=== PATIENT | female | born 1985 | race Caucasian/White ===

== ENCOUNTER 2017-12-25 08:30 | Emergency (ER) | payer BC ==
[2017-12-25 09:02] VITALS: BP 105/59
--- NOTE | 2017-12-25 09:06 | EDM.PDOC ---
ED HPI GENERAL MEDICAL PROBLEM - General Chief Complaint: Gastrointestinal Problem Stated Complaint: , CONSTIPATION Time Seen by Provider: 12/25/17 08:50 Source of Information: Reports: Patient History Limitations: Reports: No Limitations - History of Present Illness INITIAL COMMENTS - FREE TEXT/NARRATIVE: This 31 yo female patient reports to the ED by [facility] due to lower abdominal pain and cramping. The patient reports that she has not had a bowel movement in the past 4 days. The patient reports that she was attempting to digitally remove stool, but has not been able to relieve her symptoms. The patient reports that she has been attempting to push, but just can not get any stool to pass. The patient was seen on Thursday by Dr. Steven for vaginal bleeding and cramping. During that visit, the patient had an ultrasound (normal with a heartbeat) and was told that her cervix was closed. The patient reports that she has not had any additional bleeding or similar cramping. The patient reports she has been taking her vitamins and has attempted to use MiraLax. The patient reports, when she called the ambulance, she was on the bathroom floor having lower abdominal cramping, not able to control her urine and not able to have a bowel movement. 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: Other Medication(s) (MiraLax) - Related Data Allergies Allergy/AdvReac Type Severity Reaction Status Date / Time erythromycin base Allergy Nausea and Verified 04/27/15 09:57 Vomiting Penicillins Allergy Cannot Verified 04/27/15 09:57 Remember Home Meds: Home Meds ALPRAZolam [Alprazolam] 1 tab PO TID PRN 03/09/15 [History] Ergocalciferol (Vitamin D2) [Vitamin D2] 1 cap PO ASDIRECTED 03/09/15 [History] Vit37/Iron/Folic Acid [Prenata] 2 tab PO DAILY 12/25/17 [History] Past Medical History Other HEENT History: WEARS CONTACTS Other Cardiovascular History: HYPOTENSION Other Gastrointestinal History: INTERMITTENT RECTAL BLEEDING; MUCOUS WITH BM'S Other OB/BYN History: ABNORMAL PAP SMEAR - Past Surgical History Other HEENT Surgeries/Procedures: WISDOM TEETH REMOVED Social & Family History - Tobacco Use Smoking Status *Q: Never Smoker - Recreational Drug Use Recreational Drug Use: No ED ROS GENERAL - Review of Systems Review Of Systems: ROS reveals no pertinent complaints other than HPI. ED EXAM, GI/ABD - Physical Exam Exam: See Below Exam Limited By: No Limitations General Appearance: Alert, WD/WN, Moderate Distress Eyes: Bilateral: Normal Appearance, EOMI Ears: Normal External Exam, Normal Canal, Hearing Grossly Normal, Normal TMs Nose: Normal Inspection, Normal Mucosa, No Blood Throat/Mouth: Normal Inspection, Normal Lips, Normal Teeth, Normal Gums, Normal Oropharynx, Normal Voice, No Airway Compromise Head: Atraumatic, Normocephalic Neck: Normal Inspection, Supple, Non-Tender, Full Range of Motion Respiratory/Chest: No Respiratory Distress, Lungs Clear, Normal Breath Sounds, No Accessory Muscle Use, Chest Non-Tender Cardiovascular: Normal Peripheral Pulses, Regular Rate, Rhythm, No Edema, No Gallop, No JVD, No Murmur, No Rub GI/Abdominal Exam: Normal Bowel Sounds, Soft, No Organomegaly, No Distention, No Abnormal Bruit, No Mass, Pelvis Stable, Tender (lower abdomen) (Female) Exam: Deferred Rectal (Female) Exam: Deferred Back Exam: Normal Inspection, Full Range of Motion, NT Extremities: Normal Inspection, Normal Range of Motion, Non-Tender, Normal Capillary Refill, No Pedal Edema Neurological: Alert, Oriented, CN II-XII Intact, Normal Cognition, Normal Gait, Normal Reflexes, No Motor/Sensory Deficits Psychiatric: Normal Affect, Normal Mood Skin Exam: Warm, Dry, Intact, Normal Color, No Rash Lymphatic: No Adenopathy Course - Vital Signs Last Recorded V/S: Last Vital Signs Temp 37.3 C 12/25/17 08:33 Pulse 80 12/25/17 08:33 Resp 18 12/25/17 08:33 BP 105/59 L 12/25/17 08:33 Pulse Ox 100 12/25/17 08:33 - Orders/Labs/Meds Orders: Active Orders 24 hr Category Date Time Status Enema [RC] ASDIRECTED Care 12/25/17 09:34 Active Labs: Laboratory Tests 12/25/17 12/25/17 12/25/17 Range/Units 08:43 08:43 08:50 WBC (5.0-10.0) 10^3/uL RBC (4.2-5.4) 10^6/uL Hgb (12.0-16.0) g/dL Hct (37.0-47.0) % MCV (80-100) fL MCH (27.0-34.0) pg MCHC (33.0-35.0) g/dL Plt Count (150-450) 10^3/uL Neut % (Auto) (42.2-75.2) % Lymph % (Auto) (20.5-50.1) % [place] % (Auto) (2-8) % Eos % (Auto) (1.0-3.0) % Baso % (Auto) (0.0-1.0) % Sodium (135-145) mmol/L Potassium (3.6-5.0) mmol/L Chloride (101-111) mmol/L Carbon Dioxide (21.0-31.0) mmol/L Anion Gap BUN (7-18) mg/dL Creatinine (0.6-1.3) mg/dL Est Cr Clr Drug Dosing mL/min Estimated GFR (MDRD) BUN/Creatinine Ratio Glucose (74-105) mg/dL Calcium (8.4-10.2) mg/dl Total Bilirubin (0.2-1.0) mg/dL AST (10-42) IU/L ALT (10-60) IU/L Alkaline Phosphatase (42-121) IU/L Total Protein (6.7-8.2) g/dl Albumin (3.2-5.5) g/dl Globulin Albumin/Globulin Ratio HCG, Quant > 1324 H (0-25) mIU/ml Beta HCG, Quant [id number] mIU/ml Urine Color Yellow (YELLOW) Urine Appearance Clear (CLEAR) Urine pH 7.0 (5.0-9.0) Ur Specific [place] 1.010 (1.005-1.030) Urine Protein Negative (NEGATIVE) Urine Glucose (UA) Negative (NEGATIVE) Urine Ketones Negative (NEGATIVE) Urine Occult Blood Negative (NEGATIVE) Urine Nitrite Negative (NEGATIVE) Urine Bilirubin Negative (NEGATIVE) Urine Urobilinogen 0.2 (0.2-1.0) mg/dL Ur Leukocyte Esterase Negative (NEGATIVE) Urine RBC 0-5 /HPF Urine WBC 0-5 (0-5/HPF) /HPF Ur Epithelial Cells Few /HPF Urine Bacteria Few (0-FEW/HPF) /HPF Urine Opiates Screen Negative (NEGATIVE) Ur Oxycodone Screen Negative (NEGATIVE) Urine Methadone Screen Negative (NEGATIVE) Ur Barbiturates Screen Negative (NEGATIVE) U Tricyclic Antidepress Negative (NEGATIVE) Ur Phencyclidine Scrn Negative (NEGATIVE) Ur Amphetamine Screen Negative (NEGATIVE) U Methamphetamines Scrn Negative (NEGATIVE) Urine MDMA Screen Negative (NEGATIVE) U Benzodiazepines Scrn Negative (NEGATIVE) Urine Cocaine Screen Negative (NEGATIVE) U Marijuana (THC) Screen Negative (NEGATIVE) 12/25/17 12/25/17 Range/Units 08:50 08:50 WBC 11.9 H (5.0-10.0) 10^3/uL RBC 3.90 L (4.2-5.4) 10^6/uL Hgb 11.6 L (12.0-16.0) g/dL Hct 34.7 L (37.0-47.0) % MCV 89.0 (80-100) fL MCH 29.7 (27.0-34.0) pg MCHC 33.4 (33.0-35.0) g/dL Plt Count 275 (150-450) 10^3/uL Neut % (Auto) 80.7 H (42.2-75.2) % Lymph % (Auto) 11.8 L (20.5-50.1) % [place] % (Auto) 7.0 (2-8) % Eos % (Auto) 0.3 L (1.0-3.0) % Baso % (Auto) 0.2 (0.0-1.0) % Sodium 130 L (135-145) mmol/L Potassium 3.4 L (3.6-5.0) mmol/L Chloride 97 L (101-111) mmol/L Carbon Dioxide 23.0 (21.0-31.0) mmol/L Anion Gap 13.4 BUN < 5 L (7-18) mg/dL Creatinine 0.5 L (0.6-1.3) mg/dL Est Cr Clr Drug Dosing 121.45 mL/min Estimated GFR (MDRD) > 60 BUN/Creatinine Ratio 10.00 Glucose 93 (74-105) mg/dL Calcium 9.3 (8.4-10.2) mg/dl Total Bilirubin 0.6 (0.2-1.0) mg/dL AST 20 (10-42) IU/L ALT 9 L (10-60) IU/L Alkaline Phosphatase 64 (42-121) IU/L Total Protein 7.3 (6.7-8.2) g/dl Albumin 3.8 (3.2-5.5) g/dl Globulin 3.5 Albumin/Globulin Ratio 1.09 HCG, Quant (0-25) mIU/ml Beta HCG, Quant mIU/ml Urine Color (YELLOW) Urine Appearance (CLEAR) Urine pH (5.0-9.0) Ur Specific [place] (1.005-1.030) Urine Protein (NEGATIVE) Urine Glucose (UA) (NEGATIVE) Urine Ketones (NEGATIVE) Urine Occult Blood (NEGATIVE) Urine Nitrite (NEGATIVE) Urine Bilirubin (NEGATIVE) Urine Urobilinogen (0.2-1.0) mg/dL Ur Leukocyte Esterase (NEGATIVE) Urine RBC /HPF Urine WBC (0-5/HPF) /HPF Ur Epithelial Cells /HPF Urine Bacteria (0-FEW/HPF) /HPF Urine Opiates Screen (NEGATIVE) Ur Oxycodone Screen (NEGATIVE) Urine Methadone Screen (NEGATIVE) Ur Barbiturates Screen (NEGATIVE) U Tricyclic Antidepress (NEGATIVE) Ur Phencyclidine Scrn (NEGATIVE) Ur Amphetamine Screen (NEGATIVE) U Methamphetamines Scrn (NEGATIVE) Urine MDMA Screen (NEGATIVE) U Benzodiazepines Scrn (NEGATIVE) Urine Cocaine Screen (NEGATIVE) U Marijuana (THC) Screen (NEGATIVE) Meds: Medications Discontinued Medications Generic Name Dose Route Start Last Admin Trade Name Freq PRN Reason Stop Dose Admin Senna/Docusate Sodium 2 tab 12/25/17 11:47 12/25/17 12:08 Senna Plus PO 12/25/17 11:48 2 tab ONETIME ONE Administration Departure - Departure Time of Disposition: 12:46 Disposition: Home, Self-Care 01 Condition: Fair Clinical Impression: Constipation during in first trimester - Discharge Information Instructions: Constipation, Adult, [id number] Forms: ED Department Discharge Care Plan Goals: The patient was advised of the examination and lab results during the visit. The patient was given an enema to relieve her constipation. The patient was encouraged to take [id number] Docusate sodium/sennosides (50/8.6) to take 1 by mouth 2 times per day for 1 week. The patient should also increase her dietary fiber and drink plenty of fluids. If the patient has any additional symptoms or concerns, the patient should follow-up with her primary care facility or return to the emergency department. - My Orders Last 24 Hours: My Active Orders 12/25/17 09:34 Enema [RC] ASDIRECTED - Assessment/Plan Last 24 Hours: My Active Orders 12/25/17 09:34 Enema [RC] ASDIRECTED
[2017-12-25 09:17] LABS: CHLORIDE,CL 97 mmol/L (101-111); SODIUM,NA 130 mmol/L (135-145)
== END 2017-12-25 13:55 | disposition home or self-care (01) ==
LOC: DL.ED 08:30 → DL.MS 08:45 → DL.ED 13:55
DX: O99.611 Diseases of the digestive system complicating pregnancy, first trimester (principal); K59.00 Constipation, unspecified; Z88.1 Allergy status to other antibiotic agents; Z88.0 Allergy status to penicillin; Z79.899 Other long term (current) drug therapy
CPT/HCPCS: 36415; 80053; 80305; 81001; 84702; 85025; 99284; A9270

== ENCOUNTER 2020-02-15 10:45 | Inpatient (IN) | payer BC ==
[2020-02-15] MEDS ORDERED: Sodium Chloride 0.9% 10 ML Syringe FLUSH PRN (12:39)
[2020-02-15] MEDS ORDERED: Acetaminophen 325 MG Tab PO PRN (12:39)
[2020-02-15] MEDS ORDERED: Oxytocin/Normal Saline 30 UNIT/500 ML BAG ONE (12:45)
[2020-02-15] MEDS ORDERED: Oxytocin/Normal Saline 30 UNIT/500 ML BAG IV SCH ×2 (12:45→13:00)
[2020-02-15] MEDS ORDERED: Lactated Ringers 1,000 ML IV SCH (12:45)
[2020-02-15] MEDS: Lactated Ringers 1,000 ML IV SCH ×3 (12:59→19:10)
--- NOTE | 2020-02-15 14:22 | PCM.LDHP ---
L&D History of Present Illness - General Date of Service: 02/15/20 (Admit H&P) Admit Problem/Dx: Patient Status Order with Admit Dx/Problem 02/15/20 12:39 Patient Status [ADT] Routine Admission Diagnosis/Problem Admission Diagnosis/Problem Term 02/15/20 14:13 34yo WF @ 40w1d, AMA, Hx VAVD, Anxiety with depression, Hx hyperemesis, vegetarian, anemia, B+ blood type, RNI. NST today reactive, cervix ripe, admitted for induction. CODIV rapid test negative and no known r]exposure risk Source of Information: Patient, Family, Old Records, Provider, RN, Significant Other, Other ([facility] notes and episode) History Limitations: Reports: No Limitations - History of Present Illness Introduction:: 34yo WF @ 40w1d, AMA, Hx VAVD, Anxiety with depression, Hx hyperemesis, vegetarian, anemia, B+ blood type, RNI. NST today reactive, cervix ripe, admitted for induction. CODIV rapid test negative and no known exposure risk Baby active. cxns every 10-15 minutes on NST this morning. cervix 4cm at clinic, 75% effaced, BOWI =vertex well applied Timing/Duration: Reports: minutes: (10-15) Location, : Reports: Uterus Quality: Reports: Ache, Dull Severity: Mild Associated Symptoms: Reports: vaginal discharge (mucus plug passed) - Related Data Allergies/Adverse Reactions: Allergies Allergy/AdvReac Type Severity Reaction Status Date / Time erythromycin base Allergy Nausea and Verified 02/15/20 11:22 Vomiting Penicillins Allergy Cannot Verified 02/15/20 11:22 Remember Home Medications: Home Meds Vit37/Iron/Folic Acid [Prenata] 2 tab PO DAILY 12/25/17 [History] FLUoxetine [PROzac] 20 mg pe PO DAILY 08/17/18 [History] Ferrous Sulfate 325 mg PO DAILY 08/17/18 [History] Past Medical History HEENT History: Reports: Impaired Vision, Other (See Below) Other HEENT History: WEARS CONTACTS Cardiovascular History: Reports: Other (See Below) Other Cardiovascular History: HYPOTENSION Respiratory History: Reports: None Gastrointestinal History: Reports: Hemorrhoids, Other (See Below) Other Gastrointestinal History: INTERMITTENT RECTAL BLEEDING; MUCOUS WITH BM'S Genitourinary History: Reports: None [employer] History: Reports: , Spontaneous : 3 Para: 1 LMP (Approximate): Other OB/BYN History: ABNORMAL PAP SMEAR Musculoskeletal History: Reports: None Neurological History: Reports: None Psychiatric History: Reports: Anxiety, Depression Endocrine/Metabolic History: Reports: None Hematologic History: Reports: Anemia Immunologic History: Reports: None Oncologic (Cancer) History: Reports: None Dermatologic History: Reports: None - Infectious Disease History Infectious Disease History: Reports: None - Past Surgical History Head Surgeries/Procedures: Reports: None Other HEENT Surgeries/Procedures: WISDOM TEETH REMOVED - History Comment History Comment: vegetarian Social & Family History - Family History Family Medical History: Noncontributory Psychiatric: Reports: Emotional Problems Other Psychiatric Family History: depression and anxiety issues Endocrine/Metabolic: Reports: Hypothyroidism Other Family History: see EPIC notes for details of her family history. - Tobacco Use Smoking Status *Q: Never Smoker Tobacco Use Within Last Twelve Months: No Second Hand Smoke Exposure: No - Caffeine Use Caffeine Use: Reports: Soda - Alcohol Use Alcohol Use History: No Alcohol Use in Last Twelve Months: No - Recreational Drug Use Recreational Drug Use: No Drug Use in Last 12 Months: No - Sexual History Sexual History: Reports: Sexually Active, Single Partner - Living Situation & Occupation Living situation: Reports: Occupation: Employed (works for [employer] in [employer] [employer] Social History Comment: Lives with and their son, . H&P Review of Systems - Review of Systems: Review Of Systems: Comprehensive ROS is negative, except as noted in HPI. L&D Exam - Exam Exam: See Below - Vital Signs Vital Signs: as noted graphic. BP not elevated, low in clinic today 84/46m temp was 97.3 Weight: 138 lb 9.6 oz - OB Specific Contraction Intensity: Mild Movement: Active Heart Tones: Present Heart Tones per Min: 135 (reactive NST) Heart Rate (FHR) Variability: Moderate (6-25 bmp) Presentation: Vertex Estimated Weight: 7lb =/- 1/2# - Falcon Score Falcon Score Cervix Position: Midposition Falcon Score Consistency: Soft Falcon Score Effacement: 51-70% Falcon Score Dilation: 3-4 cm Falcon Score Infant's Station: -2 Falcon Score Total: 8 - Exam General: Alert, Oriented, Cooperative, Mild Distress HEENT: Conjunctiva Clear, EOMI, Hearing Intact, Mucosa Moist & [place], Pupils Equal, Pupils Reactive Neck: Supple Lungs: Clear to Auscultation, Normal Respiratory Effort Cardiovascular: Regular Rate, Regular Rhythm GI/Abdominal Exam: Normal Bowel Sounds, Non-Tender Rectal Exam: Normal Exam Genitourinary: Normal external exam, Cervical dilitation, Enlarged uterus, Vaginal discharge Back Exam: Normal Inspection Extremities: Normal Inspection, Normal Range of Motion, No Pedal Edema, Normal Capillary Refill Skin: Warm, Dry, Intact Neurological: Normal Speech, Normal Tone Psychiatric: Alert, Normal Affect, Normal Mood, Anxious - Patient Data Lab Results Last 24 hrs: Laboratory Results - last 24 hr 02/15/20 02/15/20 Range/Units 10:45 12:30 WBC 11.9 H (5.0-10.0) 10^3/uL RBC 3.53 L (4.2-5.4) 10^6/uL Hgb 11.4 L (12.0-16.0) g/dL Hct 34.2 L (37.0-47.0) % MCV 96.9 (80-100) fL MCH 32.3 (27.0-34.0) pg MCHC 33.3 (33.0-35.0) g/dL Plt Count 202 (150-450) 10^3/uL SARS-CoV-2 RNA (RT-PCR) Negative (NEGATIVE) Result Diagrams: 02/15/20 12:30 - Problem List (1) Post term SNOMED Code(s): 97540928 ICD Code: O48.0 - POST-TERM Status: Acute Current Visit: Yes (2) AMA (advanced maternal age) multigravida 35+ SNOMED Code(s): 454546150 ICD Code: O09.529 - SUPERVISION OF ELDERLY MULTIGRAVIDA, UNSPECIFIED TRIMESTER Status: Acute Current Visit: Yes (3) Vegetarian SNOMED Code(s): 759551016 ICD Code: Z78.9 - OTHER SPECIFIED HEALTH STATUS Status: Acute Current Visit: Yes (4) Maternal iron deficiency anemia affecting in third trimester, antepartum SNOMED Code(s): 20639767, 00783973, 328045588 ICD Code: O99.013 - ANEMIA COMPLICATING , THIRD TRIMESTER; D50.9 - IRON DEFICIENCY ANEMIA, UNSPECIFIED Status: Acute Current Visit: Yes (5) History of delivery by vacuum extraction, currently in third trimester SNOMED Code(s): 342646314, 722250703 ICD Code: O09.293 - SUPRVSN OF PREG W POOR REPRODCTV OR OBSTET HX, THIRD TRI Status: Acute Current Visit: Yes (6) Blood type B+ SNOMED Code(s): 056351234 ICD Code: Z67.20 - TYPE B BLOOD, RH POSITIVE Status: Acute Current Visit : No (7) Group B Streptococcus not isolated SNOMED Code(s): 448982919 ICD Code: QFD2327 - Status: Acute Current Visit: No (8) Rubella non-immune status, antepartum SNOMED Code(s): 138563778 ICD Code: O99.89 - OTH DISEASES AND CONDITIONS COMPL PREG/CHLDBRTH; Z28.3 - UNDERIMMUNIZATION STATUS Status: Acute Current Visit: No (9) Rupture of membranes with clear amniotic fluid SNOMED Code(s): 735477822, 278864239 ICD Code: [id number] - Status: Acute Current Visit: No Problem List Initiated/Reviewed/Updated: Yes Orders Last 24hrs: Active Orders 24 hr Category Date Time Status Patient Status [ADT] Routine ADT 02/15/20 12:39 Active Communication Order [RC] ASDIRECTED Care 02/15/20 12:39 Active Communication Order [RC] ASDIRECTED Care 02/15/20 12:39 Active Communication Order [RC] ASDIRECTED Care 02/15/20 12:39 Active Communication Order [RC] ASDIRECTED Care 02/15/20 12:39 Active Communication Order [RC] ASDIRECTED Care 02/15/20 12:39 Active Monitoring [RC] PER UNIT ROUTINE Care 02/15/20 12:39 Active Notify Provider Vital Signs OB [RC] ASDIRECTED Care 02/15/20 12:39 Active Notify Provider [RC] PRN Care 02/15/20 12:39 Active Notify Provider [RC] PRN Care 02/15/20 12:39 Active Notify Provider [RC] STAT Care 02/15/20 12:39 Active Peripheral IV Care [RC] . DIRECTED Care 02/15/20 12:40 Active Up ad Denise [RC] PER UNIT ROUTINE Care 02/15/20 12:39 Active Vaginal Exam [RC] PRN Care 02/15/20 12:39 Active Vital Signs [RC] PER UNIT ROUTINE Care 02/15/20 12:39 Active Acetaminophen [Tylenol] Med 02/15/20 12:39 Active 650 mg PO Q4H PRN Lactated Ringers [Ringers, Lactated] 1,000 ml Med 02/15/20 12:45 Active IV ASDIRECTED Lactated Ringers [Ringers, Lactated] 1,000 ml Med 02/15/20 13:00 Active IV ASDIRECTED Oxytocin/Normal Saline [Pitocin in NS 30 UNIT/500 ML] Med 02/15/20 13:00 Active 30 unit in 500 ml IV TITRATE Sodium Chloride 0.9% [Saline Flush] Med 02/15/20 12:39 Active 10 ml FLUSH ASDIRECTED PRN Peripheral IV Insertion Adult [OM.PC] Urgent Oth 02/15/20 12:39 Ordered Medication Orders Acetaminophen (Tylenol) 650 mg PO Q4H PRN PRN Reason: Pain/Fever Lactated Ringer's (Ringers, Lactated) 1,000 mls @ 500 mls/hr IV ASDIRECTED LEYDA Oxytocin/Sodium Chloride (Pitocin In Ns 30 Unit/500 Ml) 30 unit in 500 mls @ 2 mls/hr IV TITRATE LEYDA; Protocol Last Admin: 02/15/20 12:59 Dose: 2 munits/min, 2 mls/hr Lactated Ringer's (Ringers, Lactated) 1,000 mls @ 125 mls/hr IV ASDIRECTED LEYDA Last Admin: 02/15/20 12:59 Dose: 125 mls/hr Sodium Chloride (Saline Flush) 10 ml FLUSH ASDIRECTED PRN PRN Reason: Keep Vein Open Assessment/Plan Comment:: Assessment: 34yo WF @ 40w1d high risk in for induction AMA multigravida Blood type B+ Rubella non-immune GBS negative Maternal Anemia--hgb 11.4 on admit Vegetarian diet Hx of vacuum assisted vaginal delivery Anxiety and depression--on fluoxetine Hx hyperemesis=--resolved NST reactive/reassuring Plan: discussed options with her. as her cervix is ripe, and she is past her due date, they would like to proceed with induction has been passing mucous plug and having mild cxns today. cervix is 3+cm, 70% effaced, -2/-3 station, soft, vertex, BOWI COVID testing was completed on arrival and is NEGATIVE. AROM carried out with return of clear/non-meconium fluid. Pitocin infusion started as discussed. will continue to monitor closely. she is planning intrathecal for analgesia. further management pending her clinical course in labor. should have MMR after delivery. continue fluoxetine. PNV, iron, routine orders. hmb
[2020-02-15] MEDS ORDERED: fentaNYL 100 MCG/2 ML SDV IVPUSH PRN ×2 (15:25→16:30)
--- NOTE | 2020-02-15 17:12 | PCM.SN.2 ---
- Free Text/Narrative Note: 02-15-2020 1700 doing well pitocin @ 6 cxns every 2 minutes tracing reassuring fentanyl for comfort fluid remains clear cervix 6cm, 90%, -1st vertex well applied with cxn will continue to monitor and anticipate intrathecal when able. b
[2020-02-15] MEDS ORDERED: Ondansetron 4 MG/2 ML SDV ONE (17:38)
[2020-02-15] MEDS ORDERED: EPINEPHrine 1 MG/1 ML Amp ONE (17:44)
--- NOTE | 2020-02-15 18:00 | PCM.PREANE ---
Preanesthetic Assessment - Procedure Proposed Procedure: intrathecal analgesia - Anesthesia/Transfusion/Family Hx Anesthesia History: Prior Anesthesia Without Reaction Family History of Anesthesia Reaction: No Transfusion History: No Prior Transfusion(s) - Review of Systems General: No Symptoms Pulmonary: No Symptoms Cardiovascular: No Symptoms Gastrointestinal: No Symptoms Neurological: No Symptoms Other: Reports: None - Physical Assessment NPO Status Date: 02/15/20 NPO Status Time: 12:00 Vital Signs: Last Vital Signs Temp 98.1 F 02/15/20 14:41 Pulse 84 02/15/20 12:34 Resp 16 02/15/20 12:34 BP 99/54 L 02/15/20 12:34 Pulse Ox Height: 5 ft 4 in Weight: 138 lb 9.6 oz ASA Class: 2E Mental Status: Alert & Oriented x3 Airway Class: Mallampati = 2 Dentition: Reports: Normal Dentition Thyro-Mental Finger Breadths: 4 Mouth Opening Finger Breadths: 4 ROM/Head Extension: Full Lungs: Clear to Auscultation Cardiovascular: Regular Rate, Regular Rhythm - Lab Values: Laboratory Last Values WBC 11.9 10^3/uL (5.0-10.0) H 02/15/20 12:30 RBC 3.53 10^6/uL (4.2-5.4) L 02/15/20 12:30 Hgb 11.4 g/dL (12.0-16.0) L 02/15/20 12:30 Hct 34.2 % (37.0-47.0) L 02/15/20 12:30 MCV 96.9 fL (80-100) 02/15/20 12:30 MCH 32.3 pg (27.0-34.0) 02/15/20 12:30 MCHC 33.3 g/dL (33.0-35.0) 02/15/20 12:30 Plt Count 202 10^3/uL (150-450) 02/15/20 12:30 SARS-CoV-2 RNA (RT-PCR) Negative (NEGATIVE) 02/15/20 10:45 - Allergies Allergies/Adverse Reactions: Allergies Allergy/AdvReac Type Severity Reaction Status Date / Time erythromycin base Allergy Nausea and Verified 02/15/20 11:22 Vomiting Penicillins Allergy Cannot Verified 02/15/20 11:22 Remember - Acknowledgements Anesthesia Type Planned: Spinal Pt an Appropriate Candidate for the Planned Anesthesia: Yes Alternatives and Risks of Anesthesia Discussed w Pt/Guardian: Yes Pt/Guardian Understands and Agrees with Anesthesia Plan: Yes PreAnesthesia Questionnaire HEENT History: Reports: Impaired Vision, Other (See Below) Other HEENT History: WEARS CONTACTS Cardiovascular History: Reports: Other (See Below) Other Cardiovascular History: HYPOTENSION Respiratory History: Reports: None Gastrointestinal History: Reports: Hemorrhoids, Other (See Below) Other Gastrointestinal History: INTERMITTENT RECTAL BLEEDING; MUCOUS WITH BM'S Genitourinary History: Reports: None 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: , Spontaneous Other OB/BYN History: ABNORMAL PAP SMEAR Musculoskeletal History: Reports: None Neurological History: Reports: None Psychiatric History: Reports: Anxiety, Depression Endocrine/Metabolic History: Reports: None Hematologic History: Reports: Anemia Immunologic History: Reports: None Oncologic (Cancer) History: Reports: None Dermatologic History: Reports: None - Infectious Disease History Infectious Disease History: Reports: None - Past Surgical History Head Surgeries/Procedures: Reports: None Other HEENT Surgeries/Procedures: WISDOM TEETH REMOVED - History Comment History Comment: vegetarian - SUBSTANCE USE Smoking Status *Q: Never Smoker Tobacco Use Within Last Twelve Months: No Second Hand Smoke Exposure: No Recreational Drug Use History: No - HOME MEDS Home Medications: Home Meds Vit37/Iron/Folic Acid [Prenata] 2 tab PO DAILY 12/25/17 [History] FLUoxetine [PROzac] 20 mg pe PO DAILY 08/17/18 [History] Ferrous Sulfate 325 mg PO DAILY 08/17/18 [History] - CURRENT (IN HOUSE) MEDS Current Meds: Current Medications Acetaminophen (Tylenol) 650 mg PO Q4H PRN PRN Reason: Pain/Fever Fentanyl (Sublimaze) 50 mcg IVPUSH Q1H PRN PRN Reason: Pain (moderate 4-6) Last Admin: 02/15/20 15:35 Dose: 50 mcg Fentanyl (Sublimaze) 100 mcg IVPUSH Q1H PRN PRN Reason: Pain (severe 7-10) Last Admin: 02/15/20 16:44 Dose: 100 mcg Lactated Ringer's (Ringers, Lactated) 1,000 mls @ 500 mls/hr IV ASDIRECTED LEYDA Oxytocin/Sodium Chloride (Pitocin In Ns 30 Unit/500 Ml) 30 unit in 500 mls @ 2 mls/hr IV TITRATE LEYDA; Protocol Last Titration: 02/15/20 14:51 Dose: 6 munits/min, 6 mls/hr Lactated Ringer's (Ringers, Lactated) 1,000 mls @ 125 mls/hr IV ASDIRECTED LEYDA Last Admin: 02/15/20 17:49 Dose: 125 mls/hr Sodium Chloride (Saline Flush) 10 ml FLUSH ASDIRECTED PRN PRN Reason: Keep Vein Open Discontinued Medications Epinephrine HCl (Adrenalin) Confirm Administered Dose 1 mg .ROUTE .STK-MED ONE Stop: 02/15/20 17:45 Oxytocin/Sodium Chloride (Pitocin In Ns 30 Unit/500 Ml) Confirm Administered Dose 30 unit in 500 mls @ as directed .ROUTE .STK-MED ONE Stop: 02/15/20 12:46 Last Admin: 02/15/20 15:09 Dose: Not Given Ondansetron HCl (Zofran) Confirm Administered Dose 4 mg .ROUTE .STK-MED ONE Stop: 02/15/20 17:39 Last Admin: 02/15/20 17:48 Dose: 4 mg Sufentanil Citrate (Sufenta) Confirm Administered Dose 50 mcg .ROUTE .STK-MED ONE Stop: 02/15/20 17:44
--- NOTE | 2020-02-15 18:04 | PCM.PRNOTE ---
- Free Text/Narrative Note: Intrathecal Room 1747 Time out 1748 Sitting position. Sterile prep and drape NSF with betadine Local skin wheal 1%lidocaine L 3/4 IT. +CSF -Heme -Parasthesia 0.9mL 0.75% marcaine 20 mcg sufenta 0.1mL epi Intrathecal complete 1752 all needles accounted for. pt. tolerated procedure well. Pre VS: 107/55 hr 87 FHR 121 Post VS: 121/65 hr 80 FHR 110
[2020-02-15] MEDS ORDERED: Lidocaine 1% 30 ML SDV ONE (18:05)
[2020-02-15] MEDS ORDERED: Tranexamic Acid 1,000 MG in Sodium Chloride 0.9% 100 ML IV PRN (18:36)
[2020-02-15] MEDS ORDERED: Misoprostol 400 MCG (4 X 100 MCG TAB) RECTAL PRN (18:36)
[2020-02-15] MEDS ORDERED: Measles, Mumps & Rubella Vaccine 0.5 ML SDV SUBCUT ONE (18:36)
[2020-02-15] MEDS ORDERED: Carboprost Tromethamine 250 MCG/1 ML Amp IM PRN (18:36)
[2020-02-15] MEDS ORDERED: Benzocaine/Menthol 20%-0.5% Spray 56 GM Canister TOP PRN (18:36)
[2020-02-15] MEDS ORDERED: Ibuprofen 800 MG Tab PO PRN (18:36)
[2020-02-15] MEDS ORDERED: Simethicone 80 MG Tab.Chew PO PRN (18:36)
[2020-02-15] MEDS ORDERED: Zolpidem 5 MG Tab PO PRN (18:36)
[2020-02-15] MEDS ORDERED: Docusate Sodium 100 MG Cap PO PRN (18:36)
--- NOTE | 2020-02-15 18:45 | PCM.DEL ---
L & D Note - General Info Date of Service: 02/15/20 (time of delivery 71676) Mother's Due Date: 02/14/20 (40w1d) - Delivery Note Labor: Augmented by ARM, Induced by Oxytocin Delivery Outcome: Livebirth Delivery Method: Spontaneous Vaginal Delivery-Single Delivery Mode: Vacuum Extraction Presentation: Right Occiput Anterior (SAMI) Nuchal Cord: None (wrapped around left ankle) Prep: Povidone-Iodine (Betadine Anesthesia Type: Intrathecal (excellent results) Amniotic Fluid Description: Clear Laceration: 2nd Degree Suture size: 2-0 Placenta: Intact, Expressed Cord: 3 Vessels Estimated Blood Loss: 157 Resuscitation Needed: No : Suctioned, Bulb Syringe, Stimulated, Warmed, [place] Used, Warmer Used Provider: Mackenzie Steven Score 1 min: 7 Score 5 min: 9 Second Stage Interventions: Reports: Encouragement Given, Laboring Down, Pushing Effectively Delivery Comments (Free Text/Narrative):: Milka is a delightful 34yo who came in for induction, had pitocin started , AROM with clear fluid, underwent intrathecal with excellent results, and then rapidly went to complete dilation. Pushed well, with bradycardia noted. not feeling any urge to push, therefore I did put a vacuum on with one cxn and delivered a viable female over 2degree midline laceration without complications. cord was tightly wrapped around the right ankle at delivery and unwound easily. APGARs 7 & 9, weight pending. void and stool at . stimulated and dried after delivery. Now skin to skin with mom. planning breast feeding. hmb Vacuum Extractor Progress Note - Alternative Labor Strategies Considered Alternative Labor Strategies Considered:: Reports: Yes Strategies Considered:: Reports: Contraction Intensity Adequate, Position Changes Used to Facilitate Rotation & Descent, Empty Bladder, Rest Indications Considered:: Reports: Yes Indications:: Reports: Suspicion of Immediate or Potential Compromise Time Out:: Reports: Yes - Patient Prepared Patient Prepared:: Reports: Yes Informed Consent:: Reports: Verbal Risks: Reports: Yes Anesthesia/Analgesia Adequate:: Reports: Yes - Probability of Success High Probability of Success:: Reports: Yes Weight Estimated:: Reports: AGA Patient Diabetic:: Reports: No Pelvis Adequate:: Reports: Yes Position:: SAMI Asynclitic:: Reports: No Station:: Comments:: vacuum on with part of one contraction only and baby delivered. hmb - Application Time Maximum Application Time & Number of Pop-Offs Predetermined:: Reports: Yes Total Application Time (min): *max=20min: 1 Number of Times Cup Disengaged:: 0 Type of Vacuum Used:: Reports: Cup: Ryan type Vacuum Extraction: Successful - Exit Strategy Exit strategy available:: Reports: Yes and resuscitation teams readily available:: Reports: Yes Consult as indicated:: not needed Comments:: uncomplicated delivery. - General Info Date of Service: 02/15/20 (time of delivery: 1819) - Patient Data Vitals - Most Recent: Last Vital Signs Temp 98.1 F 02/15/20 14:41 Pulse 84 02/15/20 12:34 Resp 16 02/15/20 12:34 BP 99/54 L 02/15/20 12:34 Pulse Ox Weight - Most Recent: 138 lb 9.6 oz I&O - Last 24 Hours: Intake & Output 02/15/20 02/15/20 02/15/20 06:59 14:59 22:59 Intake Total 500 Balance 500 Lab Results Last 24 Hours: Laboratory Results - last 24 hr 02/15/20 02/15/20 Range/Units 10:45 12:30 WBC 11.9 H (5.0-10.0) 10^3/uL RBC 3.53 L (4.2-5.4) 10^6/uL Hgb 11.4 L (12.0-16.0) g/dL Hct 34.2 L (37.0-47.0) % MCV 96.9 (80-100) fL MCH 32.3 (27.0-34.0) pg MCHC 33.3 (33.0-35.0) g/dL Plt Count 202 (150-450) 10^3/uL SARS-CoV-2 RNA (RT-PCR) Negative (NEGATIVE) Med Orders - Current: Current Medications Acetaminophen (Tylenol) 650 mg PO Q4H PRN PRN Reason: Pain/Fever Fentanyl (Sublimaze) 50 mcg IVPUSH Q1H PRN PRN Reason: Pain (moderate 4-6) Last Admin: 02/15/20 15:35 Dose: 50 mcg Fentanyl (Sublimaze) 100 mcg IVPUSH Q1H PRN PRN Reason: Pain (severe 7-10) Last Admin: 02/15/20 16:44 Dose: 100 mcg Lactated Ringer's (Ringers, Lactated) 1,000 mls @ 500 mls/hr IV ASDIRECTED LEYDA Oxytocin/Sodium Chloride (Pitocin In Ns 30 Unit/500 Ml) 30 unit in 500 mls @ 2 mls/hr IV TITRATE LEYDA; Protocol Last Titration: 02/15/20 14:51 Dose: 6 munits/min, 6 mls/hr Lactated Ringer's (Ringers, Lactated) 1,000 mls @ 125 mls/hr IV ASDIRECTED LEYDA Last Admin: 02/15/20 17:49 Dose: 125 mls/hr Sodium Chloride (Saline Flush) 10 ml FLUSH ASDIRECTED PRN PRN Reason: Keep Vein Open Discontinued Medications Epinephrine HCl (Adrenalin) Confirm Administered Dose 1 mg .ROUTE .STK-MED ONE Stop: 02/15/20 17:45 Oxytocin/Sodium Chloride (Pitocin In Ns 30 Unit/500 Ml) Confirm Administered Dose 30 unit in 500 mls @ as directed .ROUTE .STK-MED ONE Stop: 02/15/20 12:46 Last Admin: 02/15/20 15:09 Dose: Not Given Lidocaine HCl (Xylocaine-Mpf 1%) Confirm Administered Dose 30 ml .ROUTE .STK- MED ONE Stop: 02/15/20 18:06 Ondansetron HCl (Zofran) Confirm Administered Dose 4 mg .ROUTE .STK-MED ONE Stop: 02/15/20 17:39 Last Admin: 02/15/20 17:48 Dose: 4 mg Sufentanil Citrate (Sufenta) Confirm Administered Dose 50 mcg .ROUTE .STK-MED ONE Stop: 02/15/20 17:44 - Problem List & Annotations (1) Post term SNOMED Code(s): 68553896 Code(s): O48.0 - POST-TERM Status: Acute Current Visit: Yes Qualifiers: Post-term type: 40-42 weeks gestation Qualified Code(s): O48.0 - Post-term (2) AMA (advanced maternal age) multigravida 35+ SNOMED Code(s): 238705069 Code(s): O09.529 - SUPERVISION OF ELDERLY MULTIGRAVIDA, UNSPECIFIED TRIMESTER Status: Acute Current Visit: Yes (3) Vegetarian SNOMED Code(s): 132437102 Code(s): Z78.9 - OTHER SPECIFIED HEALTH STATUS Status: Acute Current Visit: Yes (4) Maternal iron deficiency anemia affecting in third trimester, antepartum SNOMED Code(s): 45388616, 31867944, 351403750 Code(s): O99.013 - ANEMIA COMPLICATING , THIRD TRIMESTER; D50.9 - IRON DEFICIENCY ANEMIA, UNSPECIFIED Status: Acute Current Visit: Yes (5) History of delivery by vacuum extraction, currently in third trimester SNOMED Code(s): 753790461, 742155353 Code(s): O09.293 - SUPRVSN OF PREG W POOR REPRODCTV OR OBSTET HX, THIRD TRI Status: Acute Current Visit: Yes (6) Blood type B+ SNOMED Code(s): 984678422 Code(s): Z67.20 - TYPE B BLOOD, RH POSITIVE Status: Acute Current Visit: No (7) Group B Streptococcus not isolated SNOMED Code(s): 978505522 Code(s): DIJ7853 - Status: Acute Current Visit: No (8) Rubella non-immune status, antepartum SNOMED Code(s): 719647574 Code(s): O99.89 - OTH DISEASES AND CONDITIONS COMPL PREG/CHLDBRTH; Z28.3 - UNDERIMMUNIZATION STATUS Status: Acute Current Visit: No (9) Rupture of membranes with clear amniotic fluid SNOMED Code(s): 367152509, 406021441 Code(s): CQE3520 - Status: Acute Current Visit: No (10) Vacuum extraction, delivered, current hospitalization SNOMED Code(s): 015873133 Code(s): O66.5 - ATTEMPTED APPLICATION OF VACUUM EXTRACTOR AND FORCEPS Status: Acute Current Visit: Yes (11) Mother currently breast-feeding SNOMED Code(s): 445528506 Code(s): VKL7849 - Status: Acute Current Visit: No (12) Obstetric vaginal laceration, delivered, current hospitalization SNOMED Code(s): 510224038, 488905730 Code(s): O71.4 - OBSTETRIC HIGH VAGINAL LACERATION ALONE Status: Acute Current Visit: No - Problem List Review Problem List Initiated/Reviewed/Updated: Yes - My Orders Last 24 Hours: My Active Orders 02/15/20 12:39 Patient Status [ADT] Routine Communication Order [RC] ASDIRECTED Communication Order [RC] ASDIRECTED Communication Order [RC] ASDIRECTED Communication Order [RC] ASDIRECTED Communication Order [RC] ASDIRECTED Notify Provider Vital Signs OB [RC] ASDIRECTED Notify Provider [RC] PRN Notify Provider [RC] PRN Notify Provider [RC] STAT Up ad Denise [RC] PER UNIT ROUTINE Vaginal Exam [RC] PRN Vital Signs [RC] PER UNIT ROUTINE Acetaminophen [Tylenol] 650 mg PO Q4H PRN Sodium Chloride 0.9% [Saline Flush] 10 ml FLUSH ASDIRECTED PRN Peripheral IV Insertion Adult [OM.PC] Urgent 02/15/20 12:40 Peripheral IV Care [RC] . DIRECTED 02/15/20 12:45 Lactated Ringers [Ringers, Lactated] 1,000 ml IV ASDIRECTED 02/15/20 13:00 Lactated Ringers [Ringers, Lactated] 1,000 ml IV ASDIRECTED Oxytocin/Normal Saline [Pitocin in NS 30 UNIT/500 ML] 30 unit in 500 ml IV TITRATE 02/15/20 15:20 Communication Order [RC] DAILY 02/15/20 15:25 fentaNYL [Sublimaze] 50 mcg IVPUSH Q1H PRN 02/15/20 16:30 fentaNYL [Sublimaze] 100 mcg IVPUSH Q1H PRN 02/15/20 18:36 May Shower [RC] ASDIRECTED Benzocaine/Menthol [Dermoplast Pain Relief [place]] See Dose Instructions TOP Q4H PRN Carboprost Tromethamine [Hemabate DS] 250 mcg IM ASDIRECTED PRN Docusate Sodium [Colace] 100 mg PO BID PRN Ibuprofen [Motrin] 800 mg PO Q8H PRN Measles, Mumps & Rubella [M-M-R II Vaccine] 0.5 ml SUBCUT .ONCE ONE Simethicone 80 mg PO Q4H PRN Tranexamic Acid [Cyklokapron] 1,000 mg Sodium Chloride 0.9% [Normal Saline] 100 ml IV ONETIME Zolpidem [Ambien] 5 mg PO BEDTIME PRN miSOPROStoL [Cytotec] 800 mcg RECTAL ONETIME PRN jun [place] [Medi-Pads] 1 each TOP Q4HR PRN Assess Lochia [WOMSER] Per Unit Routine Assess Uterine Involution [WOMSER] Per Unit Routine Breast Pump [WOMSER] Per Unit Routine Ice Therapy [OM.PC] Per Unit Routine Perineal Care [OM.PC] Per Unit Routine Saline Lock Insert [OM.PC] Urgent Sitz Bath [OM.PC] Per Unit Routine Resuscitation Status Routine 02/15/20 18:38 Vaccines to be Administered [RC] PER UNIT ROUTINE 02/15/20 Dinner Regular Diet [DIET] 02/16/20 09:00 Vit with Ca/FA/Iron [ Plus Iron] 1 each PO DAILY - Plan Plan:: Assessment: 34yo WF @ 40w1d high risk in for induction AMA multigravida Blood type B+ Rubella non-immune GBS negative Maternal Anemia--hgb 11.4 on admit Vegetarian diet Hx of vacuum assisted vaginal delivery Anxiety and depression--on fluoxetine Hx hyperemesis=--resolved NST reactive/reassuring Plan: discussed options with her. as her cervix is ripe, and she is past her due date, they would like to proceed with induction has been passing mucous plug and having mild cxns today. cervix is 3+cm, 70% effaced, -2/-3 station, soft, vertex, BOWI COVID testing was completed on arrival and is NEGATIVE. AROM carried out with return of clear/non-meconium fluid. Pitocin infusion started as discussed. will continue to monitor closely. she is planning intrathecal for analgesia. further management pending her clinical course in labor. should have MMR after delivery. continue fluoxetine. PNV, iron, routine orders. hmb Delivery: 1820 viable female APGARs 7 & 9 weight pending VAVD with 2nd degree see notes. hmb
--- NOTE | 2020-02-16 08:51 | PCM48HPAN ---
Post Anesthesia Note - EVALUATION WITHIN 48HRS OF ANESTHETIC Vital Signs in Normal Range: Yes Patient Participated in Evaluation: Yes Respiratory Function Stable: Yes Airway Patent: Yes Cardiovascular Function Stable: Yes Hydration Status Stable: Yes Pain Control Satisfactory: Yes Nausea and Vomiting Control Satisfactory: Yes Mental Status Recovered: Yes Vital Signs: Last Vital Signs Temp 98.5 F 02/15/20 21:00 Pulse 82 02/15/20 21:00 Resp 16 02/15/20 21:00 BP 108/50 L 02/15/20 21:00 Pulse Ox 100 02/15/20 18:00 - COMMENTS/OBSERVATIONS Free Text/Narrative:: Post intrathecal for labor analgesia. Pt. sitting up in bed. Nursing . Stated she was very comfortable during delivery. No ARCs.
[2020-02-16] MEDS ORDERED: Prenatal Multivitamin with Calcium/Folic Acid/Iron Tab PO SCH (09:00)
[2020-02-16] MEDS ORDERED: EPINEPHrine 1 MG/1 ML Amp ONE (10:26)
[2020-02-16 16:38] VITALS: BP 106/59; PULSE 64
--- NOTE | 2020-02-16 16:45 | PCM.DCSUM1 ---
Discharge Summary - Hospital Course Diagnosis: Stroke: No - Discharge Data Discharge Date: 02/16/20 (DISCHARGE SUMMARY/DATE) Discharge Disposition: Home, Self-Care 01 Condition: Good - Referral to Home Health Primary Care Physician: Mackenzie Steven MD - Discharge Diagnosis/Problem(s) (1) Post term SNOMED Code(s): 69351852 ICD Code: O48.0 - POST-TERM Status: Acute Current Visit: Yes Qualifiers: Post-term type: 40-42 weeks gestation Qualified Code(s): O48.0 - Post-term (2) AMA (advanced maternal age) multigravida 35+ SNOMED Code(s): 318234940 ICD Code: O09.529 - SUPERVISION OF ELDERLY MULTIGRAVIDA, UNSPECIFIED TRIMESTER Status: Acute Current Visit: Yes (3) Vegetarian SNOMED Code(s): 514876119 ICD Code: Z78.9 - OTHER SPECIFIED HEALTH STATUS Status: Acute Current Visit: Yes (4) Maternal iron deficiency anemia affecting in third trimester, antepartum SNOMED Code(s): 37723800, 63774819, 220109888 ICD Code: O99.013 - ANEMIA COMPLICATING , THIRD TRIMESTER; D50.9 - IRON DEFICIENCY ANEMIA, UNSPECIFIED Status: Acute Current Visit: Yes (5) History of delivery by vacuum extraction, currently in third trimester SNOMED Code(s): 641417409, 437136579 ICD Code: O09.293 - SUPRVSN OF PREG W POOR REPRODCTV OR OBSTET HX, THIRD TRI Status: Acute Current Visit: Yes (6) Blood type B+ SNOMED Code(s): 991130081 ICD Code: Z67.20 - TYPE B BLOOD, RH POSITIVE Status: Acute Current Visit : No (7) Group B Streptococcus not isolated SNOMED Code(s): 239576811 ICD Code: EWV9669 - Status: Acute Current Visit: No (8) Rubella non-immune status, antepartum SNOMED Code(s): 618125004 ICD Code: O99.89 - OTH DISEASES AND CONDITIONS COMPL PREG/CHLDBRTH; Z28.3 - UNDERIMMUNIZATION STATUS Status: Acute Current Visit: No (9) Rupture of membranes with clear amniotic fluid SNOMED Code(s): 783556933, 938968881 ICD Code: KPW0836 - Status: Acute Current Visit: No (10) Vacuum extraction, delivered, current hospitalization SNOMED Code(s): 438368793 ICD Code: O66.5 - ATTEMPTED APPLICATION OF VACUUM EXTRACTOR AND FORCEPS Status: Acute Current Visit: Yes (11) Mother currently breast-feeding SNOMED Code(s): 563218226 ICD Code: AMD9744 - Status: Acute Current Visit: No (12) Obstetric vaginal laceration, delivered, current hospitalization SNOMED Code(s): 301965833, 623179589 ICD Code: O71.4 - OBSTETRIC HIGH VAGINAL LACERATION ALONE Status: Acute Current Visit: No - Discharge Plan Home Medications: Home Meds Vit37/Iron/Folic Acid [Prenata] 1 tab PO DAILY 12/25/17 [History] FLUoxetine [PROzac] 20 mg pe PO DAILY 08/17/18 [History] Ferrous Sulfate 325 mg PO DAILY 08/17/18 [History] - Discharge Summary/Plan Comment DC Time >30 min.: No Discharge Summary/Plan Comment: ROUTINE DISCHARGE ORDERS - Patient Data Vitals - Most Recent: Last Vital Signs Temp 98.1 F 02/16/20 08:00 Pulse 64 02/16/20 08:00 Resp 16 02/16/20 08:00 BP 106/59 L 02/16/20 08:00 Pulse Ox 99 02/16/20 08:00 Weight - Most Recent: 138 lb 9.6 oz Med Orders - Current: Current Medications Acetaminophen (Tylenol) 650 mg PO Q4H PRN PRN Reason: Pain/Fever Benzocaine/Menthol (Dermoplast Pain Relief [place]) 0 gm TOP Q4H PRN PRN Reason: Perineal comfort measures Carboprost Tromethamine (Hemabate Ds) 250 mcg IM ASDIRECTED PRN PRN Reason: Excessive vaginal bleeding Docusate Sodium (Colace) 100 mg PO BID PRN PRN Reason: Constipation Last Admin: 02/16/20 09:06 Dose: 100 mg Fentanyl (Sublimaze) 50 mcg IVPUSH Q1H PRN PRN Reason: Pain (moderate 4-6) Last Admin: 02/15/20 15:35 Dose: 50 mcg Fentanyl (Sublimaze) 100 mcg IVPUSH Q1H PRN PRN Reason: Pain (severe 7-10) Last Admin: 02/15/20 16:44 Dose: 100 mcg Lactated Ringer's (Ringers, Lactated) 1,000 mls @ 500 mls/hr IV ASDIRECTED LEYDA Oxytocin/Sodium Chloride (Pitocin In Ns 30 Unit/500 Ml) 30 unit in 500 mls @ 2 mls/hr IV TITRATE LEYDA; Protocol Last Titration: 02/15/20 21:13 Dose: 0 munits/min, 0 mls/hr Lactated Ringer's (Ringers, Lactated) 1,000 mls @ 125 mls/hr IV ASDIRECTED LEYDA Last Admin: 02/15/20 19:10 Dose: 125 mls/hr Tranexamic Acid 1,000 mg/ (Sodium Chloride) 110 mls @ 660 mls/hr IV ONETIME PRN PRN Reason: Bleeding Ibuprofen (Motrin) 800 mg PO Q8H PRN PRN Reason: Mild Pain or Fever Last Admin: 02/16/20 06:39 Dose: 800 mg Misoprostol (Cytotec) 800 mcg RECTAL ONETIME PRN PRN Reason: Hemorrhage Prenat Multivit/[place]/Iron/Folic Ac ( Plus Iron) 1 each PO DAILY [facility] Last Admin: 02/16/20 09:06 Dose: Not Given Simethicone (Simethicone) 80 mg PO Q4H PRN PRN Reason: Gas Sodium Chloride (Saline Flush) 10 ml FLUSH ASDIRECTED PRN PRN Reason: Keep Vein Open [place] (Medi-Pads) 1 each TOP Q4HR PRN PRN Reason: Perineal Comfort Measure Zolpidem Tartrate (Ambien) 5 mg PO BEDTIME PRN PRN Reason: Insomnia Discontinued Medications Epinephrine HCl (Adrenalin) Confirm Administered Dose 1 mg .ROUTE .STK-MED ONE Stop: 02/15/20 17:45 Last Admin: 02/15/20 20:28 Dose: Not Given Epinephrine HCl (Adrenalin) 0.1 mg .XX .STK-MED ONE Stop: 02/16/20 10:27 Oxytocin/Sodium Chloride (Pitocin In Ns 30 Unit/500 Ml) Confirm Administered Dose 30 unit in 500 mls @ as directed .ROUTE .STK-MED ONE Stop: 02/15/20 12:46 Last Admin: 02/15/20 15:09 Dose: Not Given Lidocaine HCl (Xylocaine-Mpf 1%) Confirm Administered Dose 30 ml .ROUTE .STK- MED ONE Stop: 02/15/20 18:06 Last Admin: 02/15/20 20:28 Dose: Not Given Measles/Mumps/Rubella Vaccine Live (M-M-R Ii Vaccine) 0.5 ml SUBCUT .ONCE ONE Stop: 02/15/20 18:37 Last Admin: 02/15/20 20:59 Dose: 0.5 ml Ondansetron HCl (Zofran) Confirm Administered Dose 4 mg .ROUTE .STK-MED ONE Stop: 02/15/20 17:39 Last Admin: 02/15/20 17:48 Dose: 4 mg Sufentanil Citrate (Sufenta) Confirm Administered Dose 50 mcg .ROUTE .STK-MED ONE Stop: 02/15/20 17:44 Last Admin: 02/15/20 20:27 Dose: Not Given Sufentanil Citrate (Sufenta) 20 mcg ITHECAL .STK-MED ONE Stop: 02/16/20 10:27
== END 2020-02-16 19:30 | disposition home or self-care (01) | DRG 560 ==
LOC: DL.OB 10:45 → UNDOADMOB 10:46 → DL.OB 10:46 → UNDOADMOB 10:53 → DL.OB 12:39 → OBSVTOIN 18:20 → DL.OB 18:20
PROVIDERS: ADMIT Family Medicine; ATTEND Family Medicine
PROC: 10D07Z6 Extraction of Products of Conception, Vacuum, Via Natural or Artificial Opening (ICD-10-PCS; principal; 2020-02-15)
PROC: 10907ZC Drainage of Amniotic Fluid, Therapeutic from Products of Conception, Via Natural or Artificial Opening (ICD-10-PCS; 2020-02-15)
PROC: 3E033VJ Introduction of Other Hormone into Peripheral Vein, Percutaneous Approach (ICD-10-PCS; 2020-02-15)
PROC: 0KQM0ZZ Repair Perineum Muscle, Open Approach (ICD-10-PCS; 2020-02-15)
PROC: 3E0R3BZ Introduction of Anesthetic Agent into Spinal Canal, Percutaneous Approach (ICD-10-PCS; 2020-02-15)
PROC: 00HU33Z Insertion of Infusion Device into Spinal Canal, Percutaneous Approach (ICD-10-PCS; 2020-02-15)
PROC: 3E0234Z Introduction of Serum, Toxoid and Vaccine into Muscle, Percutaneous Approach (ICD-10-PCS; 2020-02-15)
DX: O48.0 Post-term pregnancy (principal); O99.02 Anemia complicating childbirth; D50.9 Iron deficiency anemia, unspecified; O99.344 Other mental disorders complicating childbirth; F32.9 Major depressive disorder, single episode, unspecified; Z11.59 Encounter for screening for other viral diseases; F41.9 Anxiety disorder, unspecified; O70.1 Second degree perineal laceration during delivery; Z23 Encounter for immunization; Z3A.40 40 weeks gestation of pregnancy; Z37.0 Single live birth; Z88.0 Allergy status to penicillin; Z78.9 Other specified health status; Z67.20 Type B blood, Rh positive
CPT/HCPCS: 36415; 59409; 85027; 90471; 90707; A9270-GY; J0171; J2405; J2590; J3010; J7120; U0002

== ENCOUNTER 2020-05-29 16:06 | Emergency (ER) | payer BC ==
[2020-05-29 16:20] VITALS: BP 106/76; PULSE 99
[2020-05-29] MEDS ORDERED: Ondansetron 4 MG/2 ML SDV IVPUSH ONE (16:38)
[2020-05-29] MEDS ORDERED: Sodium Chloride 0.9% 1,000 ML IV ONE (16:38)
--- NOTE | 2020-05-29 16:47 | EDM.PDOC ---
ED HPI GENERAL MEDICAL PROBLEM - General Chief Complaint: General Stated Complaint: DIZZY NAUSEA SWEATS Time Seen by Provider: 05/29/20 16:35 Source of Information: Reports: Patient History Limitations: Reports: No Limitations - History of Present Illness INITIAL COMMENTS - FREE TEXT/NARRATIVE: This 34 yo female patient reports to the ED due to an abrupt onset of hot flashes, nausea, vomiting and diffuse abdominal cramping. The patient reports she was vomiting on the ride to the ED. 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 Onset: Today Duration: Minutes:, Constant Location: Reports: Abdomen, Generalized Quality: Reports: Other Severity: Moderate Improves with: Reports: None Worsens with: Reports: None Context: Reports: Other Associated Symptoms: Reports: Nausea/Vomiting - Related Data Allergies Allergy/AdvReac Type Severity Reaction Status Date / Time erythromycin base Allergy Nausea and Verified 02/15/20 11:22 Vomiting Penicillins Allergy Cannot Verified 02/15/20 11:22 Remember Home Meds: Home Meds Vit37/Iron/Folic Acid [Prenata] 1 tab PO DAILY 12/25/17 [History] FLUoxetine [PROzac] 20 mg pe PO DAILY 08/17/18 [History] Ferrous Sulfate 325 mg PO DAILY 08/17/18 [History] Past Medical History HEENT History: Reports: Impaired Vision, Other (See Below) Other HEENT History: WEARS CONTACTS Cardiovascular History: Reports: Other (See Below) Other Cardiovascular History: HYPOTENSION Respiratory History: Reports: None Gastrointestinal History: Reports: Hemorrhoids, Other (See Below) Other Gastrointestinal History: INTERMITTENT RECTAL BLEEDING; MUCOUS WITH BM'S Genitourinary History: Reports: None [employer] History: Reports: , Spontaneous Other [employer] History: ABNORMAL PAP SMEAR Musculoskeletal History: Reports: None Neurological History: Reports: None Psychiatric History: Reports: Anxiety, Depression Endocrine/Metabolic History: Reports: None Hematologic History: Reports: Anemia Immunologic History: Reports: None Oncologic (Cancer) History: Reports: None Dermatologic History: Reports: None - Infectious Disease History Infectious Disease History: Reports: None - Past Surgical History Head Surgeries/Procedures: Reports: None Other HEENT Surgeries/Procedures: WISDOM TEETH REMOVED - History Comment History Comment: vegetarian Social & Family History - Family History Family Medical History: Noncontributory Psychiatric: Reports: Emotional Problems Other Psychiatric Family History: depression and anxiety issues Endocrine/Metabolic: Reports: Hypothyroidism - Tobacco Use Smoking Status *Q: Never Smoker - Caffeine Use Caffeine Use: Reports: None - Recreational Drug Use Recreational Drug Use: No - Sexual History Sexual History: Reports: Sexually Active, Single Partner - Living Situation & Occupation Living situation: Reports: Occupation: Employed (works for [employer] in [employer] ED ROS GENERAL - Review of Systems Review Of Systems: Comprehensive ROS is negative, except as noted in HPI. ED EXAM, GENERAL - Physical Exam Exam: See Below Exam Limited By: No Limitations General Appearance: Alert, WD/WN, No Apparent Distress Eye Exam: Bilateral Eye: EOMI, Normal Inspection, PERRL Ears: Normal External Exam, Normal Canal, Hearing Grossly Normal, Normal TMs Nose: Normal Inspection, Normal Mucosa, No Blood Throat/Mouth: Normal Inspection, Normal Lips, Normal Teeth, Normal Gums, Normal Oropharynx, Normal Voice, No Airway Compromise Head: Atraumatic, Normocephalic Neck: Normal Inspection, Supple, Non-Tender, Full Range of Motion Respiratory/Chest: No Respiratory Distress, Lungs Clear, Normal Breath Sounds, No Accessory Muscle Use, Chest Non-Tender Cardiovascular: Normal Peripheral Pulses, Regular Rate, Rhythm, No Edema, No Gallop, No JVD, No Murmur, No Rub GI/Abdominal: Normal Bowel Sounds, Soft, Non-Tender, No Organomegaly, No Distention, No Abnormal Bruit, No Mass (Female) Exam: Deferred Rectal (Female) Exam: Deferred Back Exam: Normal Inspection, Full Range of Motion, NT Extremities: Normal Inspection, Normal Range of Motion, Non-Tender, Normal Capillary Refill, No Pedal Edema Neurological: Alert, Oriented, CN II-XII Intact, Normal Cognition, Normal Gait, Normal Reflexes, No Motor/Sensory Deficits Psychiatric: Normal Affect, Normal Mood Skin Exam: Warm, Dry, Intact, Normal Color, No Rash Lymphatic: No Adenopathy Course - Vital Signs Last Recorded V/S: Last Vital Signs Temp 36.6 C 05/29/20 16:19 Pulse 99 05/29/20 16:19 Resp 18 05/29/20 16:19 BP 106/76 05/29/20 16:19 Pulse Ox 100 05/29/20 16:19 - Orders/Labs/Meds Orders: Active Orders 24 hr Category Date Time Status CORONAVIRUS COVID-19 PCR PHL Urgent Lab 05/29/20 16:38 Ordered CULTURE URINE [RM] Stat Lab 05/29/20 16:13 Received Sodium Chloride 0.9% [Normal Saline] 1,000 ml Med 05/29/20 16:38 Ordered IV .BOLUS Medication Orders Sodium Chloride (Normal Saline) 1,000 mls @ 999 mls/hr IV .BOLUS ONE Stop: 05/29/20 17:38 Last Admin: 05/29/20 16:54 Dose: Not Given Documented by: KAROL Labs: Laboratory Tests 05/29/20 05/29/20 05/29/20 Range/Units 16:13 16:13 16:13 WBC (5.0-10.0) 10^3/uL RBC (4.2-5.4) 10^6/uL Hgb (12.0-16.0) g/dL Hct (37.0-47.0) % MCV (80-100) fL MCH (27.0-34.0) pg MCHC (33.0-35.0) g/dL Plt Count (150-450) 10^3/uL Neut % (Auto) (42.2-75.2) % Lymph % (Auto) (20.5-50.1) % Emmons % (Auto) (2-8) % Eos % (Auto) (1.0-3.0) % Baso % (Auto) (0.0-1.0) % Sodium (136-145) mmol/L Potassium (3.5-5.1) mmol/L Chloride (98-107) mmol/L Carbon Dioxide (21-32) mmol/L Anion Gap (7-13) mEq/L BUN (7-18) mg/dL Creatinine (0.55-1.02) mg/dL Est Cr Clr Drug Dosing mL/min Estimated GFR (MDRD) BUN/Creatinine Ratio (No establ ref range) Glucose (74-99) mg/dL Calcium (8.5-10.1) mg/dL Total Bilirubin (0.2-1.0) mg/dL AST (15-37) U/L ALT (14-59) U/L Alkaline Phosphatase (46-116) U/L Total Protein (6.4-8.2) g/dL Albumin (3.4-5.0) g/dL Globulin Albumin/Globulin Ratio Amylase (25-115) U/L Lipase (73-393) U/L Urine Color Yellow (YELLOW) Urine Appearance Clear (CLEAR) Urine pH 8.5 (5.0-9.0) Ur Specific Ransom 1.015 (1.005-1.030) Urine Protein Negative (NEGATIVE) Urine Glucose (UA) Negative (NEGATIVE) Urine Ketones Negative (NEGATIVE) Urine Occult Blood Negative (NEGATIVE) Urine Nitrite Negative (NEGATIVE) Urine Bilirubin Negative (NEGATIVE) Urine Urobilinogen 0.2 (0.2-1.0) mg/dL Ur Leukocyte Esterase Trace H (NEGATIVE) Urine RBC 0-5 /HPF Urine WBC 5-10 H (0-5/HPF) /HPF Ur Epithelial Cells Moderate H (NOT SEEN) /HPF Amorphous Sediment Few (NOT SEEN) /HPF Urine Bacteria Few (0-FEW/HPF) /HPF Urine Mucus Rare (NOT SEEN) /LPF Urine HCG, Qual Negative Urine Opiates Screen Negative (NEGATIVE) Ur Oxycodone Screen Negative (NEGATIVE) Urine Methadone Screen Negative (NEGATIVE) Ur Barbiturates Screen Negative (NEGATIVE) U Tricyclic Antidepress Negative (NEGATIVE) Ur Phencyclidine Scrn Negative (NEGATIVE) Ur Amphetamine Screen Negative (NEGATIVE) U Methamphetamines Scrn Negative (NEGATIVE) Urine MDMA Screen Negative (NEGATIVE) U Benzodiazepines Scrn Negative (NEGATIVE) Urine Cocaine Screen Negative (NEGATIVE) U Marijuana (THC) Screen Negative (NEGATIVE) 05/29/20 05/29/20 Range/Units 16:44 16:44 WBC 7.8 (5.0-10.0) 10^3/uL RBC 4.16 L (4.2-5.4) 10^6/uL Hgb 12.8 (12.0-16.0) g/dL Hct 38.3 (37.0-47.0) % MCV 92.1 D (80-100) fL MCH 30.8 (27.0-34.0) pg MCHC 33.4 (33.0-35.0) g/dL Plt Count 263 (150-450) 10^3/uL Neut % (Auto) 67.8 (42.2-75.2) % Lymph % (Auto) 21.1 (20.5-50.1) % Emmons % (Auto) 8.7 H (2-8) % Eos % (Auto) 2.0 (1.0-3.0) % Baso % (Auto) 0.4 (0.0-1.0) % Sodium 138 (136-145) mmol/L Potassium 4.3 (3.5-5.1) mmol/L Chloride 101 (98-107) mmol/L Carbon Dioxide 29 (21-32) mmol/L Anion Gap 12.3 (7-13) mEq/L BUN 7 (7-18) mg/dL Creatinine 0.65 (0.55-1.02) mg/dL Est Cr Clr Drug Dosing 98.27 mL/min Estimated GFR (MDRD) > 60 BUN/Creatinine Ratio 10.8 (No establ ref range) Glucose 79 (74-99) mg/dL Calcium 8.8 (8.5-10.1) mg/dL Total Bilirubin 0.4 (0.2-1.0) mg/dL AST 15 (15-37) U/L ALT 22 (14-59) U/L Alkaline Phosphatase 95 (46-116) U/L Total Protein 7.1 (6.4-8.2) g/dL Albumin 3.5 (3.4-5.0) g/dL Globulin 3.6 Albumin/Globulin Ratio 1.0 Amylase 52 (25-115) U/L Lipase 138 (73-393) U/L Urine Color (YELLOW) Urine Appearance (CLEAR) Urine pH (5.0-9.0) Ur Specific Ransom (1.005-1.030) Urine Protein (NEGATIVE) Urine Glucose (UA) (NEGATIVE) Urine Ketones (NEGATIVE) Urine Occult Blood (NEGATIVE) Urine Nitrite (NEGATIVE) Urine Bilirubin (NEGATIVE) Urine Urobilinogen (0.2-1.0) mg/dL Ur Leukocyte Esterase (NEGATIVE) Urine RBC /HPF Urine WBC (0-5/HPF) /HPF Ur Epithelial Cells (NOT SEEN) /HPF Amorphous Sediment (NOT SEEN) /HPF Urine Bacteria (0-FEW/HPF) /HPF Urine Mucus (NOT SEEN) /LPF Urine HCG, Qual Urine Opiates Screen (NEGATIVE) Ur Oxycodone Screen (NEGATIVE) Urine Methadone Screen (NEGATIVE) Ur Barbiturates Screen (NEGATIVE) U Tricyclic Antidepress (NEGATIVE) Ur Phencyclidine Scrn (NEGATIVE) Ur Amphetamine Screen (NEGATIVE) U Methamphetamines Scrn (NEGATIVE) Urine MDMA Screen (NEGATIVE) U Benzodiazepines Scrn (NEGATIVE) Urine Cocaine Screen (NEGATIVE) U Marijuana (THC) Screen (NEGATIVE) Meds: Medications Generic Name Dose Route Start Last Admin Trade Name Freq PRN Reason Stop Dose Admin Sodium Chloride 1,000 mls @ 999 mls/hr 05/29/20 16:38 05/29/20 16:54 Normal Saline IV 05/29/20 17:38 Not Given .BOLUS ONE Discontinued Medications Generic Name Dose Route Start Last Admin Trade Name Freq PRN Reason Stop Dose Admin Ondansetron HCl 4 mg 05/29/20 16:38 05/29/20 16:54 Zofran IVPUSH 05/29/20 16:39 Not Given ONETIME ONE Ondansetron HCl 4 mg 05/29/20 16:55 05/29/20 17:08 Zofran Odt PO 05/29/20 16:56 4 mg ONETIME ONE Administration Departure - Departure Time of Disposition: 17:32 Disposition: Home, Self-Care 01 Condition: Fair Clinical Impression: Gastroenteritis - Discharge Information *PRESCRIPTION DRUG MONITORING PROGRAM REVIEWED*: Not Applicable *COPY OF PRESCRIPTION DRUG MONITORING REPORT IN PATIENT JOSE: Not Applicable Instructions: Viral Gastroenteritis, Adult, [id number] Forms: ED Department Discharge Care Plan Goals: The patient was advised of the examination and lab results during the visit. The patient was given an oral dose of Zofran while in the ED with symptom improvement. The patient was discharged with a script for Zofran (4 mg) #20 to take 1 by mouth every 6 hours as needed. If the patient has any additional symptoms or concerns, the patient should either return to the emergency depa rtment or visit her primary care facility. Sepsis Event Note (ED) - Evaluation Sepsis Screening Result: No Definite Risk - Focused Exam Vital Signs: Vital Signs Temp Pulse Resp BP Pulse Ox 05/29/20 16:19 36.6 C 99 18 106/76 100 - My Orders Last 24 Hours: My Active Orders 05/29/20 16:13 CULTURE URINE [RM] Stat 05/29/20 16:38 CORONAVIRUS COVID-19 PCR PHL Urgent Sodium Chloride 0.9% [Normal Saline] 1,000 ml IV .BOLUS - Assessment/Plan Last 24 Hours: My Active Orders 05/29/20 16:13 CULTURE URINE [RM] Stat 05/29/20 16:38 CORONAVIRUS COVID-19 PCR PHL Urgent Sodium Chloride 0.9% [Normal Saline] 1,000 ml IV .BOLUS
[2020-05-29] MEDS ORDERED: Ondansetron 4 MG Tab.DIS PO ONE (16:55)
[2020-05-29 17:25] LABS: ANION GAP 12.3 mEq/L (7-13); CHLORIDE,CL 101 mmol/L (98-107); SODIUM,NA 138 mmol/L (136-145)
== END 2020-05-29 17:42 | disposition home or self-care (01) ==
LOC: DL.ED 16:06
DX: K52.9 Noninfective gastroenteritis and colitis, unspecified (principal); F41.9 Anxiety disorder, unspecified; F32.9 Major depressive disorder, single episode, unspecified; Z79.899 Other long term (current) drug therapy; Z20.828 Contact with and (suspected) exposure to other viral communicable diseases; Z88.1 Allergy status to other antibiotic agents; Z88.0 Allergy status to penicillin
CPT/HCPCS: 36415; 80053; 80305; 81001; 81025; 82150; 83690; 85025; 87086; 87635; 99284; A9270; U0002

== ENCOUNTER 2021-09-26 05:42 | Emergency (ER) | payer BC ==
--- NOTE | 2021-09-26 06:26 | EDM.PDOC ---
<Campos Montiel M - Last Filed: 09/26/21 06:19> ED HPI GENERAL MEDICAL PROBLEM - General Chief Complaint: Abdominal Pain Stated Complaint: STOMACH PAINS, CANT STOP GOING TO BATHROOM Time Seen by Provider: 09/26/21 06:15 Source of Information: Reports: Patient History Limitations: Reports: No Limitations - History of Present Illness INITIAL COMMENTS - FREE TEXT/NARRATIVE: This 35 yo female patient reports to the emergency department due to nausea/vomiting (started on 09/21/21) and diarrhea (starting on 09/22/21). The patient reports she has continued to feel nauseated, but has not been vomiting. The patient reports the diarrhea was frequent for 3 days, seemed to get better yesterday, but once again got worse last night. The patient reports she has been drinking Pedialyte, but has continued to have symptoms. The patient denies any changes in medications, but reports she has missed one dose of her anxiety medications. The patient reports she was seen with similar symptoms in the past and followed up with her primary care. The patient reports her primary care increased her medications and she felt a little better. Onset Date: 09/21/21 Duration: Constant, Getting Worse Location: Reports: Abdomen Quality: Reports: Other Severity: Moderate Improves with: Reports: None Worsens with: Reports: None Context: Reports: Other Associated Symptoms: Reports: Nausea/Vomiting, Other (diarrhea) Abdomen Pain Score (Numeric/FACES): 7 - Related Data Allergies Allergy/AdvReac Type Severity Reaction Status Date / Time erythromycin base Allergy Nausea and Verified 09/26/21 06:16 Vomiting Penicillins Allergy Cannot Verified 09/26/21 06:16 Remember Home Meds: Home Meds FLUoxetine [PROzac] 40 mg pe PO DAILY 08/17/18 [History] Ferrous Sulfate 325 mg PO DAILY 08/17/18 [History] Past Medical History HEENT History: Reports: Impaired Vision, Other (See Below) Other HEENT History: WEARS CONTACTS Cardiovascular History: Reports: Other (See Below) Other Cardiovascular History: HYPOTENSION Respiratory History: Reports: None Gastrointestinal History: Reports: Hemorrhoids, Other (See Below) Other Gastrointestinal History: INTERMITTENT RECTAL BLEEDING; MUCOUS WITH BM'S Genitourinary History: Reports: None [employer] INSTRUCTOR History: Reports: , Spontaneous Other [employer]CHO[employer] 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 History: ABNORMAL PAP SMEAR Musculoskeletal History: Reports: None Neurological History: Reports: None Psychiatric History: Reports: Anxiety, Depression Endocrine/Metabolic History: Reports: None Hematologic History: Reports: Anemia Immunologic History: Reports: None Oncologic (Cancer) History: Reports: None Dermatologic History: Reports: None - Infectious Disease History Infectious Disease History: Reports: None - Past Surgical History Head Surgeries/Procedures: Reports: None Other HEENT Surgeries/Procedures: WISDOM TEETH REMOVED - History Comment History Comment: vegetarian Social & Family History - Family History Family Medical History: No Pertinent Family History Psychiatric: Reports: Emotional Problems Other Psychiatric Family History: depression and anxiety issues Endocrine/Metabolic: Reports: Hypothyroidism - Caffeine Use Caffeine Use: Reports: None - Living Situation & Occupation Living situation: Reports: Occupation: Employed (works for [employer] in [employer] [facility] ED ROS GENERAL - Review of Systems Review Of Systems: Comprehensive ROS is negative, except as noted in HPI. ED EXAM, GI/ABD - Physical Exam Exam: See Below Exam Limited By: No Limitations General Appearance: Alert, WD/WN, Anxious, Moderate Distress, Thin Eyes: Bilateral: Normal Appearance, EOMI Ears: Normal External Exam, Normal Canal, Hearing Grossly Normal, Normal TMs Nose: Normal Inspection, Normal Mucosa, No Blood Throat/Mouth: Normal Inspection, Normal Lips, Normal Teeth, Normal Gums, Normal Oropharynx, Normal Voice, No Airway Compromise Head: Atraumatic, Normocephalic Neck: Normal Inspection, Supple, Non-Tender, Full Range of Motion Respiratory/Chest: No Respiratory Distress, Lungs Clear, Normal Breath Sounds, No Accessory Muscle Use, Chest Non-Tender Cardiovascular: Normal Peripheral Pulses, Regular Rate, Rhythm, No Edema, No Gallop, No JVD, No Murmur, No Rub GI/Abdominal Exam: Normal Bowel Sounds, Soft, No Organomegaly, No Distention, No Abnormal Bruit, No Mass, Pelvis Stable, Tender (diffuse abdominal tenderness) (Female) Exam: Deferred Rectal (Female) Exam: Deferred Back Exam: Normal Inspection, Full Range of Motion, NT Extremities: Normal Inspection, Normal Range of Motion, Non-Tender, Normal Capillary Refill, No Pedal Edema Neurological: Alert, Oriented, CN II-XII Intact, Normal Cognition, Normal Gait, Normal Reflexes, No Motor/Sensory Deficits Psychiatric: Normal Affect, Normal Mood Skin Exam: Warm, Dry, Intact, Normal Color, No Rash Lymphatic: No Adenopathy Departure - Departure Disposition: Home, Self-Care 01 Clinical Impression: Gastroenteritis - Discharge Information Instructions: Food Choices to Help Relieve Diarrhea, Adult, Viral Gastroenteritis, Adult, [id number] Forms: ED Department Discharge Additional Instructions: Rx: Bentyl 10mg (#20) 1.) Continue to drink small, frequent sips of fluids to stay hydrated. Pedialyte is ok as long as you aren't drinking too much, continue to 1:4 parts with water. 2.) Eat a bland diet, consisting of small snack-like meals. Avoid spicy, greasy, high-fat, or acidic foods until your diarrhea has subsided. 3.) Infectious disease will be in contact with you should your stool sample result positive. 4.) Follow up with your primary care provider, or return to the emergency department, should your symptoms persist for five more days or worsen. Sepsis Event Note (ED) - Evaluation Sepsis Screening Result: No Definite Risk <Denice Jorge - Last Filed: 09/26/21 09:18> Course - Vital Signs Last Recorded V/S: Last Vital Signs Temp 97.3 F 09/26/21 06:01 Pulse 90 09/26/21 06:40 Resp 16 09/26/21 06:40 BP 102/68 09/26/21 06:40 Pulse Ox 96 09/26/21 06:40 - Orders/Labs/Meds Orders: Active Orders 24 hr Category Date Time Status CULTURE BLOOD [BC] Stat Lab 09/26/21 06:30 Received CULTURE STOOL [RM] Stat Lab 09/26/21 06:53 Received CULTURE URINE [RM] Stat Lab 09/26/21 05:54 Received SHIGA TOXIN 1 & 2 [MREF] Stat Lab 09/26/21 06:53 Received Sodium Chloride 0.9% [Normal Saline] 1,000 ml Med 09/26/21 06:18 Active IV .BOLUS Medication Orders Sodium Chloride (Normal Saline) 1,000 mls @ 250 mls/hr IV .BOLUS ONE Stop: 09/26/21 10:17 Last Admin: 09/26/21 06:30 Dose: 250 mls/hr Documented by: LAURI Labs: Laboratory Tests 09/26/21 09/26/21 09/26/21 Range/Units 05:54 06:22 06:22 WBC (5.0-10.0) 10^3/uL RBC (4.2-5.4) 10^6/uL Hgb (12.0-16.0) g/dL Hct (37.0-47.0) % MCV (80-100) fL MCH (27.0-34.0) pg MCHC (33.0-35.0) g/dL Plt Count (150-450) 10^3/uL Neut % (Auto) (42.2-75.2) % Lymph % (Auto) (20.5-50.1) % [place] % (Auto) (2-8) % Eos % (Auto) (1.0-3.0) % Baso % (Auto) (0.0-1.0) % Sodium (136-145) mmol/L Potassium (3.5-5.1) mmol/L Chloride (98-107) mmol/L Carbon Dioxide (21-32) mmol/L Anion Gap (7-13) mEq/L BUN (7-18) mg/dL Creatinine (0.55-1.02) mg/dL Est Cr Clr Drug Dosing mL/min Estimated GFR (MDRD) BUN/Creatinine Ratio (No establ ref range) Glucose (70-99) mg/dL Lactic Acid (0.4-2.0) mmol/L Calcium (8.5-10.1) mg/dL Total Bilirubin (0.2-1.0) mg/dL AST (15-37) U/L ALT (14-59) U/L Alkaline Phosphatase (46-116) U/L Total Protein (6.4-8.2) g/dL Albumin (3.4-5.0) g/dL Globulin Albumin/Globulin Ratio Urine Color Yellow (YELLOW) Urine Appearance Clear (CLEAR) Urine pH 6.5 (5.0-9.0) Ur Specific [place] 1.015 (1.005-1.030) Urine Protein Negative (NEGATIVE) Urine Glucose (UA) Negative (NEGATIVE) Urine Ketones Negative (NEGATIVE) Urine Occult Blood Negative (NEGATIVE) Urine Nitrite Negative (NEGATIVE) Urine Bilirubin Negative (NEGATIVE) Urine Urobilinogen 0.2 (0.2-1.0) mg/dL Ur Leukocyte Esterase Small H (NEGATIVE) Urine RBC 0-5 (0-5) /HPF Urine WBC 10-20 H (0-5/HPF) /HPF Ur Epithelial Cells Moderate H (NOT SEEN) /HPF Urine Bacteria Moderate H (0-FEW/HPF) /HPF Urine HCG, Qual Negative Urine Opiates Screen Negative (NEGATIVE) Ur Oxycodone Screen Negative (NEGATIVE) Urine Methadone Screen Negative (NEGATIVE) Ur Barbiturates Screen Negative (NEGATIVE) U Tricyclic Antidepress Negative (NEGATIVE) Ur Phencyclidine Scrn Negative (NEGATIVE) Ur Amphetamine Screen Negative (NEGATIVE) U Methamphetamines Scrn Negative (NEGATIVE) Urine MDMA Screen Negative (NEGATIVE) U Benzodiazepines Scrn Negative (NEGATIVE) Urine Cocaine Screen Negative (NEGATIVE) U Marijuana (THC) Screen Negative (NEGATIVE) Influenza Type A RNA (NEGATIVE) Influenza Type B RNA (NEGATIVE) SARS-CoV-2 RNA (TARAN) (NEGATIVE) 09/26/21 09/26/21 09/26/21 Range/Units 06:30 06:30 06:30 WBC 6.6 (5.0-10.0) 10^3/uL RBC 4.49 (4.2-5.4) 10^6/uL Hgb 13.7 (12.0-16.0) g/dL Hct 41.2 (37.0-47.0) % MCV 91.8 (80-100) fL MCH 30.5 (27.0-34.0) pg MCHC 33.3 (33.0-35.0) g/dL Plt Count 261 (150-450) 10^3/uL Neut % (Auto) 72.8 (42.2-75.2) % Lymph % (Auto) 14.4 L (20.5-50.1) % [place] % (Auto) 12.0 H (2-8) % Eos % (Auto) 0.6 L (1.0-3.0) % Baso % (Auto) 0.2 (0.0-1.0) % Sodium 141 (136-145) mmol/L Potassium 3.9 (3.5-5.1) mmol/L Chloride 104 (98-107) mmol/L Carbon Dioxide 24 (21-32) mmol/L Anion Gap 16.9 H (7-13) mEq/L BUN 5 L (7-18) mg/dL Creatinine 0.57 (0.55-1.02) mg/dL Est Cr Clr Drug Dosing 98.68 mL/min Estimated GFR (MDRD) > 60 BUN/Creatinine Ratio 8.8 (No establ ref range) Glucose 84 (70-99) mg/dL Lactic Acid 0.7 (0.4-2.0) mmol/L Calcium 8.9 (8.5-10.1) mg/dL Total Bilirubin 0.4 (0.2-1.0) mg/dL AST 14 L (15-37) U/L ALT 19 (14-59) U/L Alkaline Phosphatase 78 (46-116) U/L Total Protein 7.6 (6.4-8.2) g/dL Albumin 3.8 (3.4-5.0) g/dL Globulin 3.8 Albumin/Globulin Ratio 1.0 Urine Color (YELLOW) Urine Appearance (CLEAR) Urine pH (5.0-9.0) Ur Specific [place] (1.005-1.030) Urine Protein (NEGATIVE) Urine Glucose (UA) (NEGATIVE) Urine Ketones (NEGATIVE) Urine Occult Blood (NEGATIVE) Urine Nitrite (NEGATIVE) Urine Bilirubin (NEGATIVE) Urine Urobilinogen (0.2-1.0) mg/dL Ur Leukocyte Esterase (NEGATIVE) Urine RBC (0-5) /HPF Urine WBC (0-5/HPF) /HPF Ur Epithelial Cells (NOT SEEN) /HPF Urine Bacteria (0-FEW/HPF) /HPF Urine HCG, Qual Urine Opiates Screen (NEGATIVE) Ur Oxycodone Screen (NEGATIVE) Urine Methadone Screen (NEGATIVE) Ur Barbiturates Screen (NEGATIVE) U Tricyclic Antidepress (NEGATIVE) Ur Phencyclidine Scrn (NEGATIVE) Ur Amphetamine Screen (NEGATIVE) U Methamphetamines Scrn (NEGATIVE) Urine MDMA Screen (NEGATIVE) U Benzodiazepines Scrn (NEGATIVE) Urine Cocaine Screen (NEGATIVE) U Marijuana (THC) Screen (NEGATIVE) Influenza Type A RNA (NEGATIVE) Influenza Type B RNA (NEGATIVE) SARS-CoV-2 RNA (TARAN) (NEGATIVE) 09/26/21 Range/Units 06:32 WBC (5.0-10.0) 10^3/uL RBC (4.2-5.4) 10^6/uL Hgb (12.0-16.0) g/dL Hct (37.0-47.0) % MCV (80-100) fL MCH (27.0-34.0) pg MCHC (33.0-35.0) g/dL Plt Count (150-450) 10^3/uL Neut % (Auto) (42.2-75.2) % Lymph % (Auto) (20.5-50.1) % [place] % (Auto) (2-8) % Eos % (Auto) (1.0-3.0) % Baso % (Auto) (0.0-1.0) % Sodium (136-145) mmol/L Potassium (3.5-5.1) mmol/L Chloride (98-107) mmol/L Carbon Dioxide (21-32) mmol/L Anion Gap (7-13) mEq/L BUN (7-18) mg/dL Creatinine (0.55-1.02) mg/dL Est Cr Clr Drug Dosing mL/min Estimated GFR (MDRD) BUN/Creatinine Ratio (No establ ref range) Glucose (70-99) mg/dL Lactic Acid (0.4-2.0) mmol/L Calcium (8.5-10.1) mg/dL Total Bilirubin (0.2-1.0) mg/dL AST (15-37) U/L ALT (14-59) U/L Alkaline Phosphatase (46-116) U/L Total Protein (6.4-8.2) g/dL Albumin (3.4-5.0) g/dL Globulin Albumin/Globulin Ratio Urine Color (YELLOW) Urine Appearance (CLEAR) Urine pH (5.0-9.0) Ur Specific [place] (1.005-1.030) Urine Protein (NEGATIVE) Urine Glucose (UA) (NEGATIVE) Urine Ketones (NEGATIVE) Urine Occult Blood (NEGATIVE) Urine Nitrite (NEGATIVE) Urine Bilirubin (NEGATIVE) Urine Urobilinogen (0.2-1.0) mg/dL Ur Leukocyte Esterase (NEGATIVE) Urine RBC (0-5) /HPF Urine WBC (0-5/HPF) /HPF Ur Epithelial Cells (NOT SEEN) /HPF Urine Bacteria (0-FEW/HPF) /HPF Urine HCG, Qual Urine Opiates Screen (NEGATIVE) Ur Oxycodone Screen (NEGATIVE) Urine Methadone Screen (NEGATIVE) Ur Barbiturates Screen (NEGATIVE) U Tricyclic Antidepress (NEGATIVE) Ur Phencyclidine Scrn (NEGATIVE) Ur Amphetamine Screen (NEGATIVE) U Methamphetamines Scrn (NEGATIVE) Urine MDMA Screen (NEGATIVE) U Benzodiazepines Scrn (NEGATIVE) Urine Cocaine Screen (NEGATIVE) U Marijuana (THC) Screen (NEGATIVE) Influenza Type A RNA Negative (NEGATIVE) Influenza Type B RNA Negative (NEGATIVE) SARS-CoV-2 RNA (TARAN) Negative (NEGATIVE) Meds: Medications Generic Name Dose Route Start Last Admin Trade Name Freq PRN Reason Stop Dose Admin Sodium Chloride 1,000 mls @ 250 mls/hr 09/26/21 06:18 09/26/21 06:30 Normal Saline IV 09/26/21 10:17 250 mls/hr .BOLUS ONE Administration Discontinued Medications Generic Name Dose Route Start Last Admin Trade Name Freq PRN Reason Stop Dose Admin Dicyclomine HCl 10 mg 09/26/21 08:07 09/26/21 08:19 Dicyclomine 10 Mg Cap PO 09/26/21 08:08 10 mg ONETIME ONE Administration - Re-Assessments/Exams Free Text/Narrative Re-Assessment/Exam: 09/26/21 Care of patient assumed by machine sign writer from Alonzo Montiel PA-C at 0700. Findings of lab work reviewed with patient. She continues to experience abdominal cramping; will administer Bentyl. Departure - Departure Time of Disposition: 09:13 Condition: Fair - Discharge Information *PRESCRIPTION DRUG MONITORING PROGRAM REVIEWED*: Not Applicable *COPY OF PRESCRIPTION DRUG MONITORING REPORT IN PATIENT JOSE: Not Applicable Sepsis Event Note (ED) - Focused Exam Vital Signs: Vital Signs Temp Pulse Resp BP Pulse Ox 09/26/21 06:40 90 16 102/68 96 09/26/21 06:01 97.3 F 101 H 16 123/81 94 L
[2021-09-26] MEDS: Sodium Chloride 0.9% 1,000 ML IV ONE (06:30)
[2021-09-26 06:41] VITALS: BP 102/68; PULSE 90
[2021-09-26 07:03] LABS: ANION GAP 16.9 mEq/L (7-13); CHLORIDE,CL 104 mmol/L (98-107); SODIUM,NA 141 mmol/L (136-145)
[2021-09-26 07:03] LABS: AMPHETAMINES,URINE NEGATIVE (NEGATIVE); BARBITURATES,URINE NEGATIVE (NEGATIVE); BENZODIAZEPINE,URINE NEGATIVE (NEGATIVE); MDMA (ECSTASY), URINE NEGATIVE (NEGATIVE); METHADONE,URINE NEGATIVE (NEGATIVE); METHAMPHETAMINES,URINE NEGATIVE (NEGATIVE); OPIATES,URINE NEGATIVE (NEGATIVE); OXYCODONE,URINE NEGATIVE (NEGATIVE); PHENCYCLIDINE,URINE NEGATIVE (NEGATIVE); TCA,URINE NEGATIVE (NEGATIVE)
[2021-09-26 07:22] LABS: CORONAVIRUS COVID-19 NAA NEGATIVE (NEGATIVE)
[2021-09-26] MEDS: Dicyclomine 10 MG Cap PO ONE (08:19)
== END 2021-09-26 09:29 | disposition home or self-care (01) ==
LOC: DL.ED 05:42
DX: K52.9 Noninfective gastroenteritis and colitis, unspecified (principal); Z88.0 Allergy status to penicillin; Z88.1 Allergy status to other antibiotic agents; Z20.822 Contact with and (suspected) exposure to COVID-19
CPT/HCPCS: 0240U; 36415; 80053; 80305-QW; 81001; 81025; 83605; 85025; 87040; 87045; 87046; 87086; 87899; 99284; A9270-GY; J7030

== ENCOUNTER 2024-02-11 11:28 | Emergency (ER) | payer BC ==
[2024-02-11 11:50] VITALS: BP 97/68; PULSE 83
[2024-02-11] MEDS: Sodium Chloride 0.9% 10 ML Syringe FLUSH PRN (12:07)
[2024-02-11] MEDS: Sodium Chloride 0.9% 1,000 ML IV ONE (12:07)
[2024-02-11 12:08] LABS: BASOPHILS PERCENT AUTO 0.5 % (0.0-1.0); EOSINOPHILS PERCENT AUTO 1.8 % (1.0-3.0); HEMATOCRIT 36.1 % (37.0-47.0); HEMOGLOBIN 11.6 g/dL (12.0-16.0); LYMPHOCYTES PERCENT AUTO 27.7 % (20.5-50.1); MEAN CORPUSCULAR HEMOGLOBIN 28.4 pg (27.0-34.0); MEAN CORPUSCULAR HGB CONC 32.1 g/dL (33.0-35.0); MEAN CORPUSCULAR VOLUME 88.3 fL (80-100); MONOCYTES PERCENT AUTO 10.4 % (2-8); NEUTROPHILS PERCENT AUTO 59.6 % (42.2-75.2); PLATELET COUNT,PLT 302 10^3/uL (150-450); RED BLOOD CELL COUNT 4.09 10^6/uL (4.2-5.4); WHITE BLOOD CELL COUNT,WBC 5.5 10^3/uL (5.0-10.0)
[2024-02-11 12:09] LABS: APPEARANCE,URINE SLIGHTLY CLOUDY (CLEAR); BILIRUBIN,URINE NEGATIVE (NEGATIVE); COLOR,URINE YELLOW (YELLOW); GLUCOSE,URINE NEGATIVE (NEGATIVE); KETONES,URINE >=160 (NEGATIVE); LEUKOCYTE ESTERASE,URINE MODERATE (NEGATIVE); NITRITE,URINE NEGATIVE (NEGATIVE); OCCULT BLOOD,URINE NEGATIVE (NEGATIVE); PROTEIN,URINE NEGATIVE (NEGATIVE); UROBILINOGEN,URINE 0.2 mg/dL (0.2-1.0)
[2024-02-11 12:15] LABS: AMPHETAMINES,URINE NEGATIVE (NEGATIVE); BARBITURATES,URINE NEGATIVE (NEGATIVE); BENZODIAZEPINE,URINE POSITIVE (NEGATIVE); MDMA (ECSTASY), URINE NEGATIVE (NEGATIVE); METHADONE,URINE NEGATIVE (NEGATIVE); METHAMPHETAMINES,URINE NEGATIVE (NEGATIVE); OPIATES,URINE NEGATIVE (NEGATIVE); OXYCODONE,URINE NEGATIVE (NEGATIVE); PHENCYCLIDINE,URINE NEGATIVE (NEGATIVE); TCA,URINE NEGATIVE (NEGATIVE)
[2024-02-11 12:20] LABS: BACTERIA,URINE MODERATE /HPF (0-FEW/HPF); EPITHELIAL CELLS,URINE MODERATE /HPF (NOT SEEN); MUCUS,URINE NOT SEEN /LPF (NOT SEEN); RBC,URINE NOT SEEN /HPF (0-5); WBC,URINE 20-30 /HPF (0-5/HPF)
[2024-02-11 12:22] LABS: C-REACTIVE PROTEIN 2.5 ng/dL (<=0.50); MAGNESIUM 1.8 mg/dL (1.8-2.4)
[2024-02-11] MEDS: Ketorolac 30 MG/ML SDV IVPUSH ONE (12:25)
[2024-02-11 12:27] LABS: ANION GAP 13.6 mEq/L (7-13); CALCIUM 8.8 mg/dL (8.5-10.1); CREATININE 0.49 mg/dL (0.55-1.02); EST CRCL DRUG DOSING (CG) 121.64 mL/min; POTASSIUM,K 3.6 mmol/L (3.5-5.1)
== END 2024-02-11 12:40 | disposition home or self-care (01) ==
LOC: DL.ED 11:28
DX: T50.905A Adverse effect of unspecified drugs, medicaments and biological substances, initial encounter (principal); Z88.0 Allergy status to penicillin; Z88.1 Allergy status to other antibiotic agents; Z86.19 Personal history of other infectious and parasitic diseases; Z86.16 Personal history of COVID-19
CPT/HCPCS: 36415; 80048; 80305; 81001; 83735; 85025; 86140; 87086; 99283; 99284; J7030; J1885; J3490